=== PATIENT | male | born 1980 | race Native Hawaiian/Other Pacific Islander ===

== ENCOUNTER 2018-05-13 17:15 | Emergency (ER) | payer OTHER ==
[~2018-05-13] VITALS: Ht 188 cm; Wt 120.2 kg
[2018-05-13 18:51] VITALS: BP 129/84; TEMP 98.1
== END 2018-05-13 18:52 | disposition home or self-care (01) ==
LOC: ED 17:15
DX: S93.492A Sprain of other ligament of left ankle, initial encounter (principal); W17.2XXA Fall into hole, initial encounter; Y92.89 Other specified places as the place of occurrence of the external cause
CPT/HCPCS: 99282